=== PATIENT | male | born 1995 | race African-American/Black ===

== ENCOUNTER 2021-03-26 14:41 | Emergency (ER) | payer OTHER ==
[~2021-03-26] VITALS: Ht 170.2 cm; Wt 59.1 kg
[2021-03-26 14:42] VITALS: BP 107/57
[2021-03-26] MEDS ORDERED: guaiFENesin SYRUP 200 MG/10 ML UDC PO ONE (17:30)
== END 2021-03-26 18:00 | disposition home or self-care (01) ==
LOC: M ED 14:41
DX: J06.9 Acute upper respiratory infection, unspecified (principal)
CPT/HCPCS: 99283; U0003